=== PATIENT | male | born 2000 | race Caucasian/White ===

== ENCOUNTER 2025-06-17 08:23 | Emergency (ER) | payer MEDICAID, SELFPAY ==
[2025-06-17 08:23] VITALS: BP 130/90; PULSE 65; RESP 16; TEMP 36.6; O2SAT 99; BMI 33.9
--- NOTE | 2025-06-17 08:43 | ED.VIS.DENTA ---
HPI History of Present Illness Chief Complaint: Dental Narrative Narrative: 24-year-old male presents with left lower jaw swelling and toothache that has had for the last 3 days. He denies any fevers or chills, no nausea or vomiting, no difficulty breathing or swallowing. States he has not been to a dentist in years. It is his second molar in his left lower jaw that has been hurting him. He has had decreased p.o. intake. Taking Tylenol without relief. He told his significant other that he was unable to tolerate the pain any longer, and that they have been having difficulty finding a dentist who takes his insurance. He presents to the emergency department with dental pain. States smokes occasionally. PFSH PFSH Home Medications ?Medication ?Instructions ?Recorded ?Last Taken ?Type Albuterol Aerosols PRN Asthma 09/12/13 Unknown History Albuterol Inhaler PRN Asthma 09/12/13 Unknown History Flaxseed Oil/[place] 3,6,9 09/12/13 09/12/13 History mineral oil 30 ml PO DAILY 09/12/13 09/12/13 History polyethylene glycol 3350 17 gram 17 g PO DAILY 09/12/13 09/12/13 History oral powder packet clindamycin HCl 300 mg capsule 300 mg PO Q6H #40 CAPSULES 06/17/25 Unknown Rx (Cleocin HCl) ibuprofen 800 mg tablet 800 mg PO Q8H PRN pain #20 tabs 06/17/25 Unknown Rx Allergy/AdvReac Type Severity Reaction Status Date / Time amoxicillin Allergy Intermediate Rash Verified 06/17/25 08:25 Penicillins (PCN) Allergy Intermediate Hives Verified 06/17/25 08:25 Anesthetics - Amide Type - Allergy Swelling Verified 06/17/25 08:25 Select A Anesthetics - Tenea Type- Allergy Swelling Verified 06/17/25 08:25 Parabens Social History Smoking Status: Former smoker ROS ROS ED ROS Narrative Review of systems positive for left lower jaw pain, pain in second molar. No fevers or chills, no difficulty swallowing or breathing. Patient denies swelling to his left lower jaw, but significant other thinks he may have mild swelling. EXAM Physical Exam Narrative Exam Narrative: Afebrile. Vital signs noted. Nontoxic-appearing. Ambulatory NAD. Cardiovascular examination regular rate and rhythm. Focused examination of the mouth does show widespread dental decay and numerous dental caries. There is a large dental Darcie on tooth #18. The second molar on his left lower jaw. No fluctuance of the gum or gingival abscess. No Shawn angina. Airway patent. No drooling or trismus. Const Vital Signs: 06/17/25 08:23 Temperature 97.8 F Temperature Source Temporal Pulse Rate 65 Respiratory Rate 16 Blood Pressure 130/90 H Blood Pressure Mean 103 Pulse Ox 99 Oxygen Delivery Method Room Air MDM MDM MDM Narrative Medical decision making narrative: Differential diagnosis includes but not limited to periapical abscess versus pain due to dental caries. I reviewed the patient's allergy list and he has allergies to amoxicillin and penicillin as well as amide Fei anesthetics. I do not feel that a dental block is indicated. He needs to follow-up with a dentist as soon as possible. He was told not to smoke or vape. I discussed with him narcotic analgesics and their use and indication. He states he avoids use of opiates as his mother was an addict. He was given 1 dose here in the emergency department but prescriptions were written for clindamycin and ibuprofen. He was given his first dose of antibiotic here in the emergency department. He was given a dental referral sheet. I feel he can be discharged to follow-up. Return instructions reviewed. Disposition is discharged home in stable condition. History & Record Review Discussion w/independent historian: Patient and Significant other Discharge Plan Triage Chief Complaint: Dental ED Provider: Jeramie Bishop Dx/Rx/DC Orders Clinical Impression: Pain due to dental caries, Jaw pain Instructions: ED Dental Pain, ED Dental Cavity Prescriptions: New clindamycin HCl [Cleocin HCl] 300 mg capsule 300 mg PO Q6H Qty: 40 0RF ibuprofen 800 mg tablet 800 mg PO Q8H PRN (Reason: pain) Qty: 20 0RF No Action polyethylene glycol 3350 17 GM powder in packet 17 g PO DAILY Flaxseed Oil/[place] 3,6,9 Albuterol Aerosols PRN (Reason: Asthma) Albuterol Inhaler PRN (Reason: Asthma) mineral oil 30 ML oil 30 ml PO DAILY Primary Care Provider: Ping Ramos Referrals: Ping Ramos MD [Primary Care Provider] - Activity Restrictions/Additional Instructions: Follow-up with a dentist as soon as possible. Antibiotics and NSAIDs as directed. No smoking. Return with sustained high fever, swelling of your neck, difficulty swallowing, new or worsening symptoms. Print Language: Kazakh Disposition Disposition: Home, Self Care
[2025-06-17] MEDS: HYDROcodone Bitartrate/Apap 5/325 Tablet PO (08:52)
[2025-06-17 08:55] VITALS: BP 122/84; PULSE 61; RESP 16; TEMP 36.6; O2SAT 96
--- OUTSIDE RECORDS SUMMARY | 2025-06-17 09:41 | XMS RPT_ITS | CCD ---
Author Organization [facility] Inform ion [facility] MEDICAL ASSIST[facility] Care Team Providers Care Watch And Clock Repair Clerk Name Role Phone Jeramie Bishop MD Emergency Provider [phone] Care Physician, No Primary Primary Care Provider Unavailable Allergies Allergy Classification Reported Allergen(s) Allergy Type Date of Onset Reaction(s) Facility (1 source) Amoxicillin Drug Allergy 06-17-2025 Rash [facility] (1 source) Penicillins Allergy to substance 06-17-2025 Hives [facility] (1 source) Anesthetics - Amide Type - Select A Allergy to substance 06-17-2025 [facility] (1 source) Anesthetics - Teena Type- Parabens Allergy to substance 06-17-2025 [facility] Medications Current Medications Medication Drug Class(es) Dates Sig (Normalized) Sig (Original) Albuterol (1 source) beta2-Adrenergic Agonist Start: 09-12-2013 Albuterol Inhaler Active as needed for Asthma September 12, 2013 12:00am Albuterol Aerosols (1 source) Start: 09-12-2013 Albuterol Aerosols Active as needed for Asthma September 12, 2013 12:00am clindamycin 300 mg oral capsule (1 source) Lincosamide Antibacterial Start: 06-17-2025 take 1 capsule by mouth every six hours Clindamycin Hcl (Cleocin Hcl) 300 mg capsule Active 300 mg PO EVERY 6 HOURS 40 0 June 17, 2025 12:00am Flaxseed Oil/[place] 3,6,9 (1 source) Start: 09-12-2013 Flaxseed Oil/[place] 3,6,9 Active September 12, 2013 12:00am ibuprofen 800 mg oral tablet (1 source) Nonsteroidal Anti-inflammatory Drug Start: 06-17-2025 take 1 tablet by mouth every eight hours as needed for pain Ibuprofen 800 mg tablet Active 800 mg PO Q8H as needed for pain 20 0 June 17, 2025 12:00am Mineral Oil 30 ML oil (1 source) Start: 09-12-2013 take 1 mL by mouth once daily Mineral Oil 30 ML oil Active 30 mL PO DAILY September 12, 2013 12:00am polyethylene glycol 3350 82179 mg powder for oral solution (1 source) Osmotic Laxative Start: 09-12-2013 take 17 g by mouth once daily Polyethylene Glycol 3350 17 GM powder in packet Active 17 g PO DAILY September 12, 2013 12:00am Problems Problem Classification Problem Date Documented Da te Episodic/Chronic Disorders of teeth and jaw (2 sources) Pain; Translations: [Dental caries, unspecified] 06-17-2025 Episodic Vital Signs Date Time Vital Sign Value Performing Clinician Faci lity 06-17-2025 08:55-0400 Body temperature 97.9 [degF] Jeramie Bishop MD Work Phone: [phone] [place] [address] 06-17-2025 08:55-0400 Diastolic blood pressure 84 mm[Hg] Jeramie Bishop MD Work Phone: [phone] [address] 06-17-2025 08:55-0400 Heart rate 61 /min Jeramie Bishop MD Work Phone: [phone] [place] [address] 06-17-2025 08:55-0400 Respiratory rate 16 /min Jeramie Bishop MD Work Phone: [facility] 06-17-2025 08:55-0400 SaO2% (BldA) [Mass fraction] 96 % Jeramie Bishop MD Work Phone: [facility] 06-17-2025 08:55-0400 Systolic blood pressure 122 mm[Hg] Jeramie Bishop MD Work Phone: [facility] 06-17-2025 08:23-0400 Body height 154.94 cm Jeramie Bishop MD Work Phone: [facility] 06-17-2025 08:23-0400 Body mass index (BMI) [Ratio] 33.9 kg/m2 Jeramie Bishop MD Work Phone: [facility] 06-17-2025 08:23-0400 Body weight 81.41 kg Jeramie Bishop MD Work Phone: [facility] Encounters Encounter Date Encounter Type Care Provider Facility Start: 06-17-2025 End: 06-17-2025 Emergency department patient visit Jeramie Bishop MD Work Phone: -Emergency Department Work Phone: Plan of Treatment Date Care Activity Detail Author Start: 06-17-2025 [facility] Patient Education ED Dental Pain ED Dental Cavity [facility] Work Phone: Payers Date Payer Category Payer Unknown [id number] Unknown [id number] Social History Date Type Detail Facility Start: 06-17-2025 Tobacco smoking stat [facility] Current Light tobacco smoker [facility] Start: 2000 Sex Assigned At Male [facility] Discharge summary 06-17-2025 Note Date & Type Note Facility 06-17-2025 Discharge summary [facility] Discharge summary Note Date & Type Note Facility Discharge summary Note Date/Time June 17, 2025 8:49am [facility] Medical Records Department [address] [place] [address] Emergency Department Summary 06/17/25 MR#: [id number] Acct: [id number] Name: KATHY CAROLINA Rep #:[id number] : 2000 From: Jeramie Bishop MD PCP: Dr. Ping Ramos MD Status:ID E ER Location: ED HPI History of Present Illness Chief Complaint: Dental Narrative Narrative: 24-year-old male presents with left lower jaw swelling and toothache that has had for the last 3 days. He denies any fevers or chills, no nausea or vomiting,no difficulty breathing or swallowing. States he has not been to a dentist in years. It is his second molar in his left lower jaw that has been hurting him. He has had decreased p.o. intake. Taking Tylenol without relief. He told his significant other that he was unable to tolerate the pain any longer, and that they have been having difficulty finding a dentist who takes his insurance. He presents to the emergency department with dental pain. States smokes occasionally. PFSH PFSH Home Medications ?Medication ?Instructions ?Recorded ?Last Taken ?Type Albuterol Aerosols PRN Asthma 09/12/13 Unknown History Albuterol Inhaler PRN Asthma 09/12/13 Unknown History Flaxseed Oil/[place] 3,6,9 09/12/13 09/12/13 History mineral oil 30 ml PO DAILY 09/12/13 1003/31 History polyethylene glycol 3350 17 gram 17 g PO DAILY 3 09/12/13 History oral powder packet clindamycin HCl 300 mg capsule 300 mg PO Q6H #40 CAPSU LES 06/17/25 Unknown Rx (Cleocin HCl) ibuprofen 800 mg tablet 800 mg PO Q8H PRN pain #20 t abs 06/17/25 Unknown Rx Allergy/AdvReac Type Severity Reaction Status Date / Time amoxicillin Allergy Intermediate Rash Verified 06/17/25 08:25 Penicillins (PCN) Allergy Intermediate Hives Verified 06/17/25 08:25 Anesthetics - Amide Type - Allergy Swelling Verified 06/17/25 08:25 Select A Anesthetics - Teena Type- Allergy Swelling Verified 06/17/25 08:25 Parabens Social History Smoking Status: Former smoker ROS ROS ED ROS Narrative Review of systems positive for left lower jaw pain, pain in second molar. No fevers or chills, no difficulty swallowing or breathing. Patient denies swelling to his left lower jaw, but significant other thinks he may have mild swelling. EXAM Physical Exam Narrative Exam Narrative: Afebrile. Vital signs noted. Nontoxic-appearing. Ambulatory NAD. Cardiovascular examination regular rate and rhythm. Focused examination of the mouth does show widespread dental decay and numerous dental caries. There is a large dental Darcie on tooth #18. The second molar on his left lower jaw. No fluctuance of the gum or gingival abscess. No Shawn angina. Airway patent. No drooling or trismus. Const Vital Signs: 06/17/25 08:23 Temperature 97.8 F Temperature Source Temporal Pulse Rate 65 Respiratory Rate 16 Blood Pressure 130/90 H Blood Pressure Mean 103 Pulse Ox 99 Oxygen Delivery Method Room Air MDM MDM MDM Narrative Medical decision making narrative: Differential diagnosis includes but not limited to periapical abscess versus pain due to dental caries. I reviewed the patient's allergy list and he has allergies to amoxicillin and penicillin as well as amide Fei anesthetics. I do not feel that a dental block is indicated. He needs to follow-up with a dentist as soon as possible. He was told not to smoke or vape. I discussed with him narcotic analgesics and their use and indication. He states he avoids use of opiates as his mother was an addict. He was given 1 dose here in the emergency department but prescriptions were written for clindamycin and ibuprofen. He was given his first dose of antibiotic here in the emergency department. He was given a dental referral sheet. I feel he can be discharged tofollow-up. Return instructions reviewed. Disposition is discharged home in stable condition. History & Record Review Discussion w/independent historian: Patient and Significant other Discharge Plan Triage Chief Complaint: Dental ED Provider: Jeramie Bishop Dx/Rx/DC Orders Clinical Impression: Pain due to dental caries, Jaw pain Instructions: ED Dental Pain, ED Dental Cavity Prescriptions: New clindamycin HCl [Cleocin HCl] 300 mg capsule 300 mg PO Q6H Qty: 40 0RF ibuprofen 800 mg tablet 800 mg PO Q8H PRN (Reason: pain) Qty: 20 0RF No Action polyethylene glycol 3350 17 GM powder in packet 17 g PO DAILY Flaxseed Oil/[place] 3,6,9 Albuterol Aerosols PRN (Reason: Asthma) Albuterol Inhaler PRN (Reason: Asthma) mineral oil 30 ML oil 30 ml PO DAILY Primary Care Provider: Ping Ramos Referrals: Ping Ramos MD [Primary Care Provider] - Activity Restrictions/Additional Instructions: Follow-up with a dentist as soon as possible. Antibiotics and NSAIDs as directed. No smoking. Return with sustained high fever, swelling of your neck,difficulty swallowing, new or worsening symptoms. Print Language: Uruguayan Disposition Disposition: Home, Self Care What to do if you have Problems For any increased pain, shortness of breath, bleeding, nausea or vomiting, chestpain, or any unexpected problems, contact your Primary Care Provider. Call [facility] ([phone]) or report to the closest Emergency Room. Call 911 if necessary. 06/17/25 0829 <Electronically signed by Jeramie Bishop MD> Cosigner Signature (if applicable): CC: Dr. Ping Ramos MD ~ Signed [facility] Work Phone: Evaluation note Note Date & Type Note Facility Evaluation note No assessment information availa ble [facility] Work Phone: Hospital Discharge instructions Note Date & Type Note Facility Hospital Discharge instructions Additional Instructions Follow-up with a dentist as soon as possible. Antibiotics and NSAIDs as directed. No smoking. Return with sustained high fever, swelling of your neck, difficulty swallowing, new or worsening symptoms. [facility] Work Phone: Reason for referral (narrative) Note Date & Type Note Facility Reason for referral (narrative) No reason for referral information available [facility] Work Phone: Chief Complaint and Reason for Visit Chief Complaint Admit Date dental June 17, 2025 8:23 am Advance Directives Advance Directive Response Recorded Date/ Time Do you have a Healthcare Power of Financial Assistant? No June 17, 2025 8:54am Additional Source Comments Care Teams (unrecognized sec tion and content) Team Status: Active Member Role/Relationship Status Dates No Primary Care Physician Primary Care Provider Active Team Status: Inactive Member Role/Relationship Status Dates Jeramie Bishop MD Emergency Provider Active Star t: June 17, 2025 End: June 17, 2025 No Primary Care Physician Primary Care Provider Active Start: June 17, 2025 End: June 17, 2025 Goals (unrecognized section and content) Goals may be documented in a n alternate section FOR RECORDS PERTAINING TO PATIENTS WHO ARE OR HAVE BEEN ENROLLED IN A CHEMICAL DEPENDENCY/SUBSTANCEABUSE PROGRAM, SOME INFORMATION MAY BE OMITTED. This clinical summary was aggregated from multiple sources. Caution should be exercised in using it in the provision of clinical care. This summary normalizes information from multiple sources, and as a consequence, information in this document may materially change the coding, format and clinical context of patient data. In addition, data may be omitted in some cases. CLINICAL DECISIONS SHOULD BE BASED ON THE PRIMARY CLINICAL RECORDS. [facility] [employer] provides no warranty or guarantee of the accuracy or completeness of information in this document.
== END 2025-06-17 08:56 | disposition home or self-care (01) ==
LOC: ED 08:49
PROVIDERS: Emergency Provider Emergency Medicine; Visit Provider Emergency Medicine
DX: K08.89 Other specified disorders of teeth and supporting structures (principal); K02.9 Dental caries, unspecified; R68.84 Jaw pain; F17.200 Nicotine dependence, unspecified, uncomplicated
CPT/HCPCS: 99283